=== PATIENT | female | born 1985 | race Caucasian/White ===

== ENCOUNTER 2024-10-09 04:25 | Emergency (ER) | payer OTHER, SELFPAY ==
[2024-10-09 04:27] VITALS: BP 114/74
[2024-10-09 05:53] VITALS: BMI 24.0
[2024-10-09 05:57] VITALS: BP 104/69
[2024-10-09 06:00] VITALS: BP 105/70
[2024-10-09 06:18] LABS: COVID-19 Antigen Negative (Negative)
[2024-10-09] MEDS: TYLENOL 1000 MG PO (06:26)
[2024-10-09 07:00] VITALS: BP 97/66
--- NOTE | 2024-10-09 07:10 | ED.GENMED ---
History of Present Illness
General
Chief Complaint: Cold/Flu/URI Symptoms
Source: patient
Exam Limitations: none
Time Seen by Provider: 10/09/24 05:18
Nursing documentation reviewed up to this point in time: agreed with
History of Present Illness
History of Present Illness:
Pleasant 39-year-old female presents with wheezing and fever and coughing. She states that the symptoms been going on since Monday. Patient states that the cough has been worsening. Denies hemoptysis. Denies chest pain. Denies nausea or
vomiting. No prior medical history. Did not take any [id number] medications.
Review of Systems
Review of Systems
Allergies reviewed?: Yes
All Other Systems: ROS reviewed and negative except as documented in HPI and ROS
Constitutional: Reports no symptoms
EENT: Reports no symptoms
Respiratory: Reports cough and trouble breathing
Cardiac: Reports no symptoms
ABD/GI: Reports no symptoms
: Reports no symptoms
Musculoskeletal: Reports no symptoms
Skin: Reports no symptoms
Neurological: Reports no symptoms
Endocrine: Reports no symptoms
Hematologic/Lymphatic: Reports no symptoms
Psychiatric: Reports no symptoms
Phy Exam
General Physical Exam
General Presentation: well appearing and no apparent distress
General Skin: warm and dry
General Habitus: normal
General Mental: alert
General Hydration: appears well hydrated
ENT Exam
ENT Exam: EOMI, pharynx normal, neck supple and normocephalic
Eye Exam
Eye Exam: PERRL, cornea clear and conjunctiva normal
Cardiovascular Exam
Cardiovascular Exam: regular rate/rhythm, no edema, no murmur and normal peripheral pulses
Pulmonary Exam
Pulmonary Exam: generalized wheezing
Cough: coarse cough
Gastrointestinal Exam
Gastrointestinal Exam: normal bowel sounds, non tender, soft, no organomegaly, no pulsatile mass and non distended
Neurological Exam
Neurological Exam: alert, oriented x3, no motor deficits and speech normal
Musculoskeletal Exam
Musculoskeletal Exam: full ROM and no edema
Skin Exam
Skin Exam: normal color, warm/dry, no rash and no petechia
Psychiatric Exam
Psychiatric Exam: normal mood/affect
Sepsis
Sepsis Screening
Sepsis Assessment: Sepsis Ruled Out
Sepsis Screen
Sepsis Screen: Sepsis Ruled Out
Date: 10/09/24
Time: 07:12
Course
Orders/Labs/Results
Orders:
Orders
10/09/24 05:18
CR Chest - 2 Views Urgent
Comment:
Reason For Exam: dyspnea
10/09/24 05:51
COVID-19 Antigen Urgent
Source: Nasal Swab
Influenza A+B Rapid Molecular Urgent
RACHNA Source: Nasal Swab
Specimen Description:
10/09/24 06:24
Acetaminophen [Tylenol] 1,000 mg .ROUTE .STK-MED ONE
10/09/24 06:26
Acetaminophen [Tylenol] 1,000 mg PO NOW STA
Vital Signs
Initial and Last Documented VS:
Initial Vital Signs
Temp Pulse Resp BP Pulse Ox
98.8 F 94 24 114/74 100
10/09/24 04:27 10/09/24 04:27 10/09/24 04:27 10/09/24 04:27 10/09/24 04:27
Last Documented Vital Signs
Temp Pulse Resp BP Pulse Ox
100.5 F H 94 24 105/70 94
10/09/24 06:00 10/09/24 04:27 10/09/24 04:27 10/09/24 06:00 10/09/24 06:45
*Radiology
Radiology exam reviewed: preliminary read by ED provider (Bronchial thickening)
*Pulse Oximetry
Patient hypoxic: no
*Critical Care Note
Total Time (30-74mins, 75-104mins- exclusive of procedures): Not Applicable
ED Attending Note
-
Portions of this chart may have been created with voice recognition software.� Occasional wrong word or��sound alike� substitutions may have occurred due to the inherent limitations of voice recognition software.
Discharge Plan
Departure
Patient Disposition: Home (Routine Discharge)
Date of Disposition: 10/09/24
Time of Disposition: 07:08
Patient with high blood pressure during this ER visit?: No
Discharge Problem:
Acute bronchitis
Instructions: Acute Bronchitis, Adult (DC)
Prescriptions:
New
prednisone 50 mg Tablet
50 mg PO DAILY Qty: 4 0RF
albuterol sulfate 90 mcg/actuation HFA aerosol inhaler
2 puff inhalation Q6H PRN (Reason: shortness of breath or wheezing) Qty: 8.5 0RF
No Action
cyclobenzaprine 10 mg tablet
10 mg PO TIDPRN PRN (Reason: muscle spasm) Qty: 20 0RF
diclofenac potassium 50 mg tablet
50 mg PO BID Qty: 20 0RF
Referrals:
Zonia Bush MD [Family Provider] -
Activity Restrictions/Additional Instructions:
Thank You for choosing [facility].
It was a pleasure meeting you and taking part in your care. We hope for your continued healing and wellness.
Please read discharge instructions in their entirety. However, they are for general education and may not describe your exact diagnosis at discharge. Information on your ER visit and medical conditions were discussed with you along with appropriate
follow up information...
If indicated, please take your medications as instructed and indicated on discharge paperwork.
Please schedule a follow up appointment as directed. Call to schedule an appointment
Please return to the emergency department with ANY change in, persisting, or worsening of symptoms. If any of your symptoms do not improve, or persist, or become more severe within 6-12 hours, please return to the emergency department for further
care.
Please return to the emergency department if you develop a headache, neck pain/stiffness, fever greater than 100.4F, chest pain, shortness of breath, persistent nausea, vomiting, slurred speech, difficulty walking, numbness/tingling, weakness, signs
of infection or any other symptoms that are worrisome to you.
If you have any questions or concerns please do not hesitate to call the Hospital at or E-mail me directly at [email or web address]
Interventions
Interventions:
*Risk Screen - Suicide Last Done: 10/09/24 04:27
*General Assessment Last Done: 10/09/24 05:53
*Neglect/Abuse Screening Last Done: 10/09/24 04:27
*ED- Fall Risk Assessment Last Done: 10/09/24 05:53
*ED COVID-19 Vaccine History Last Done: 10/09/24 05:53
ED- Pulmonary Assessment Last Done: 10/09/24 05:58
Discharge Date and Time
Print Language: FRENCH
== END 2024-10-09 07:15 | disposition home or self-care (01) ==
LOC: EMR 04:25
PROVIDERS: EMERGENCY PHYSICIAN Student in an Organized Health Care Education/Training Program; FAMILY PHYSICIAN Family Medicine
DX: J20.9 Acute bronchitis, unspecified (principal); Z11.52 Encounter for screening for COVID-19
CPT/HCPCS: 99283; 71046; 87502; 87811

== ENCOUNTER 2024-10-20 16:56 | Emergency (ER) | payer OTHER, SELFPAY ==
[2024-10-20 17:03] VITALS: BP 105/74
[2024-10-20 17:26] LABS: % Basophils 0.3 % (0-2); % Eosinophils 0.9 % (0-6); % Immature Granulocytes 0.5 % (0-0.5); % Lymphocytes 11.3 % (20.5-51.1); % Monocytes 5.4 % (1.7-9.3); % Neutrophils 81.6 % (42.2-75.2); Absolute Eosinophils 0.1 10^3/uL (0-0.7); Absolute Immature Granulocytes 0.1 10^3/uL (0-0.05); Absolute Lymphocytes 1.4 10^3/uL (1.2-3.4); Absolute Monocytes 0.6 10^3/uL (0.1-0.6); Absolute Neutrophils 9.8 10^3/uL (1.4-6.5); Hematocrit 42.5 % (37.0-47.0); Hemoglobin 14.4 g/dL (12.0-16.0); Mean Corp Hgb Conc. 33.9 g/dL (33.0-37.0); Mean Corpuscular Hgb 30.8 pg (27.0-31.0); Mean Corpuscular Volume 90.8 fL (81.0-99.0); Mean Platelet Volume 11.5 fL (7.4-10.4); Nucleated Red Blood Cells % 0 %; Platelet Count 291 10^3/uL (130-400); Red Blood Cell Count 4.68 10^6/uL (4.20-5.40); Red Cell Dist. Width 11.7 % (11.5-14.5)
[2024-10-20 17:34] LABS: PT 12.6 Sec (11.4-14.6)
[2024-10-20 17:42] LABS: ALT (SGPT) < 10 U/L (0-35); AST (SGOT) 23 U/L (14-36); Albumin 4.3 g/dl (3.5-5.0); Alkaline Phosphatase 71 U/L (38-126); Blood Urea Nitrogen 17 mg/dl (7-17); Calcium 9.7 mg/dl (8.4-10.2); Carbon Dioxide 28 mmol/L (22-30); Chloride 107 mmol/L (98-107); Glucose 100 mg/dl (70-99); Potassium 4.3 mmol/L (3.5-5.1); Sodium 141 mmol/L (135-145); Total Protein 7.5 g/dl (6.3-8.2); eGFR > 60.00
[2024-10-20 17:48] LABS: Troponin I < 0.012 ng/ml
[2024-10-20 17:49] LABS: HCG, Serum Qualitative Screen Negative
--- NOTE | 2024-10-20 21:17 | ED.GENMED ---
History of Present Illness
General
Chief Complaint: Chest Pain
Time Seen by Provider: 10/20/24 21:16
History of Present Illness
History of Present Illness:
39-year-old female without significant past medical history presenting to the emergency department for right-sided rib pain. Patient reports cough for the past 3 weeks. Was seen in the hospital on 10/09, told that she had bronchitis and given
steroids. She reports mild interval improvement, however still having the cough and pain with deep inspiration. Denies significant pain to the chest. Denies pulmonary cardiac history. Denies fever. Denies known sick contacts. Denies abdominal
pain or GI symptoms. Denies any direct injury to the chest. Denies additional acute medical complaints
Phy Exam
Physical Exam
Physical Exam:
General: Well-appearing, no clinical signs of dehydration, nontoxic and in no acute distress
HEENT: protecting airway
Neck: appears supple
CV: Normal heart rate, regular rhythm, no evidence of cyanosis
Resp: No accessory muscle use, no increased work of breathing. Moderate tenderness overlying the right anterior ribs, inferiorly. No crepitus. No overlying skin changes.
Abd: Soft and non-distended, no tenderness to palpation
Extremities: No deformities, no swelling, no erythema, pulses and sensation intact
Neuro: alert, no focal neurologic deficit
: deferred
Rectal: deferred
Psych: Normal affect
Skin: Intact
Scores
Heart Score for Chest Pain Patients
STEMI patient?: No
History: Slightly or Non-Suspicious
ECG: Normal
Age: </= 45 years
Risk Factors: No Risk Factors
Troponin: </= Normal Limit
Heart Score for Chest Pain Patients: 0
Heart Score Risk: 2.5% MACE over next 6 weeks
Course
Orders/Labs/Results
Orders:
Orders
10/20/24 16:58
EKG [Electrocardiogram (*1)] Urgent
Reason for Study: Chest Pain
EKG- Treatment ONCE
Test Result ONCE
10/20/24 17:07
Chest [CR Chest - 2 Views ] Urgent
Comment:
Reason For Exam: right sided chest pain
10/20/24 17:13
Complete Blood Count/With Diff Urgent
Comprehensive Metabolic Panel Urgent
HCG, Serum Qualitative Screen Urgent
Prothrombin Time Urgent
Troponin I Urgent
10/20/24 21:41
Azithromycin [Zithromax] 500 mg PO NOW STA
Ketorolac [Toradol] 15 mg IM NOW STA
Abnormal Lab Results
10/20/24
17:13
WBC 12.0 H 10^3/uL
(4.8-10.8)
MPV 11.5 H fL
(7.4-10.4)
Abs Immat Gran (auto) 0.1 H 10^3/uL
(0-0.05)
Absolute Neuts (auto) 9.8 H 10^3/uL
(1.4-6.5)
Neutrophils % 81.6 H %
(42.2-75.2)
Lymphocytes % 11.3 L %
(20.5-51.1)
Glucose 100 H mg/dl
(70-99)
10/20/24 17:13
10/20/24 17:13
Vital Signs
Initial and Last Documented VS:
Initial Vital Signs
Temp Pulse Resp BP Pulse Ox
98.5 F 85 16 105/74 99
10/20/24 17:03 10/20/24 17:03 10/20/24 17:03 10/20/24 17:03 10/20/24 17:03
Last Documented Vital Signs
Temp Pulse Resp BP Pulse Ox
98.5 F 87 20 105/74 99
10/20/24 17:03 10/20/24 22:16 10/20/24 22:16 10/20/24 17:03 10/20/24 17:03
MDM/Problems Addressed
MDM/Problems Addressed:
39-year-old female presenting to the emergency department for persistent right-sided rib pain with cough. Vital signs are normal.
On exam patient resting comfortably, no acute distress or discomfort. No respiratory distress, no increased work of breathing or focal abnormal lung sounds. Patient does have an active dry cough. Ultimately persistent bronchitis. EKG obtained on
arrival, nonischemic, no cardiac risk factors without present concern for ACS. Ultimately suspect patient's pain is from rib contusion versus musculoskeletal strain. Grossly tender to the right anterior rib region without any step-offs, crepitus,
abnormal skin findings. Patient PERC negative without concern for PE. Labs obtained, mild leukocytosis. Chest x-ray without any sign of pneumonia, however given duration of symptoms, walking pneumonia is a consideration. Will treat patient with
a trial of azithromycin. Toradol administered for pain. Otherwise remained stable and feel stable for discharge with continued outpatient follow-up. Return precautions discussed and patient verbalized understanding
*EKG
Interpreted by ED Provider?: Yes
EKG Intrepretation Date: 10/20/24
EKG Intrepretation Time: 21:47
Interpretation: normal
Comparison EKG: no comparison EKG present
Heart Rate: 72
Rate: normal
Rhythm: sinus
Zenia: normal axis
Interval: normal interval
QRS Pattern: normal QRS
Ischemia: no ischemia
*Critical Care Note
Total Time (30-74mins, 75-104mins- exclusive of procedures): Not Applicable
ED Attending Note
-
Portions of this chart may have been created with voice recognition software.� Occasional wrong word or��sound alike� substitutions may have occurred due to the inherent limitations of voice recognition software.
Discharge Plan
Departure
Patient Disposition: Home (Routine Discharge)
Date of Disposition: 10/20/24
Time of Disposition: 21:50
Patient with high blood pressure during this ER visit?: No
Condition: Good
Discharge Problem:
Rib pain on right side, Bronchitis
Instructions: Rib injury in adults, Costochondritis (DC), Bronchitis in adults - ED discharge instructions
Prescriptions:
New
azithromycin [Zithromax] 250 mg tablet
250 mg PO DAILY Qty: 4 0RF
No Action
cyclobenzaprine 10 mg tablet
10 mg PO TIDPRN PRN (Reason: muscle spasm) Qty: 20 0RF
diclofenac potassium 50 mg tablet
50 mg PO BID Qty: 20 0RF
prednisone 50 mg Tablet
50 mg PO DAILY Qty: 4 0RF
albuterol sulfate 90 mcg/actuation HFA aerosol inhaler
2 puff inhalation Q6H PRN (Reason: shortness of breath or wheezing) Qty: 8.5 0RF
Referrals:
UNKNOWN - PT DOES,NOT KNOW [Unknown Provider] -
Activity Restrictions/Additional Instructions:
You were seen in the emergency department for cough and rib pain
You were found to have normal blood work, EKG, chest x-ray imaging. We suspect that you have a rib contusion or rib sprain. You were started on antibiotics given the duration of your symptoms and location of pain. Please take as directed.
Please follow-up closely with your primary care physician.
Return to the emergency department for any worsening of your symptoms, or any development of chest pain, difficulty breathing, abdominal pain with persistent vomiting and inability to tolerate food or liquid by mouth (concern for dehydration),
weakness, headache or confusion, fever greater than 100.4, or any additional symptoms that are concerning to you.
Thank you for choosing [facility].
Interventions
Interventions:
*Risk Screen - Suicide Last Done: 10/20/24 17:03
*General Assessment Last Done: 10/20/24 17:03
*Neglect/Abuse Screening Last Done: 10/20/24 22:16
*ED- Fall Risk Assessment Last Done: 10/20/24 17:03
*ED COVID-19 Vaccine History Last Done: 10/20/24 17:03
*Nursing Disposition Last Done: 10/20/24 22:16
ED- Cardiac Assessment Last Done: 10/20/24 22:16
Discharge Date and Time
Discharge Date/Time: 10/20/24 22:19
Print Language: BULGARIAN
[2024-10-20] MEDS: TORADOL 15 MG IM (22:08)
[2024-10-20] MEDS: ZITHROMAX 500 MG PO (22:08)
== END 2024-10-20 22:19 | disposition home or self-care (01) ==
LOC: EMR 16:56
PROVIDERS: EMERGENCY PHYSICIAN Student in an Organized Health Care Education/Training Program; FAMILY PHYSICIAN Nurse Practitioner Family
DX: R07.81 Pleurodynia (principal); J40 Bronchitis, not specified as acute or chronic
CPT/HCPCS: 99283; 96372; 71046; 80053; 84484; 84703; 85025; 85610; 93005